=== PATIENT | male | born 1960 | race Caucasian/White ===

== ENCOUNTER 2017-07-08 15:25 | Inpatient (IN) ==
[2017-07-08] MEDS ORDERED: Vancomycin 1,000 MG in D5% in Water 250 ML IVPB SCH (22:00)
--- NOTE | 2017-07-08 22:00 | Internal Med History&Physical ---
Date of Encounter: 07/08/17 Time of Encounter: 21:58 Assessment and Plan (1) Testicular abscess Current visit: Yes Status: Acute Start the patient on vancomycin and Zosyn. Given the degree of pain, I will get testicular ultrasound ruled out tortion. Appreciate urology input. Internal Medicine - H&P: HPI Chief complaint: testicular pain History of present illness: Mr. Viera is a 57 year old male presents to an outside emergency room with the main complain of right-sided testicular swelling and pain. This started approximately 2 days ago when the patient started noticing pain redness warmth tenderness and swelling of the right testicle. Patient had subjective chills. Patient has also been complaining of burning urine and frequent urination. CT scan with outside facility showed a 3.2 cm scrotal abscess. Patient denies any trauma. Patient denies any similar problems. Patient is not sexually active. Patient denies any purulent drainage. Past Med Surg Social Fam HX - Past Surgical History Surgical History: appendectomy - Social History Smoking Status: Current every day smoker All Systems PM: A 10-system review of systems was performed and is negative for pertinent findings except as documented above in the HPI. Review of systems: 10 point review of systems is negative except for HPI - Constitutional Vitals: Temp Pulse Resp BP Pulse Ox 98.2 F 73 16 135/81 97 07/08/17 19:48 07/08/17 19:48 07/08/17 19:48 07/08/17 19:48 07/08/17 19:48 Exam: General: Patient is A&O X3 Cardiac: normal S1, S2, no additional sounds or murmurs Chest: Clear to auscultation bilaterally Abdomen: soft, nontender, non distended, normal BS. Neuro: No focal deficits Genitourinary: right testicle swollen, red, warm, tender.
[2017-07-08 22:18] LABS: Basophils % 0.3 %; Eosinophils # 0.1 K/mcL (0.0-0.6); Eosinophils % 1.4 %; Hematocrit 40.7 % (37.5-50.1); Hemoglobin 13.8 g/dL (12.9-16.9); Immature Granulocytes % 0.3 % (0-4); Immature Platelets 2.8 % (1.1-6.1); Lymphocytes # 1.7 K/mcL (0.6-4.6); Lymphocytes % 17.7 %; Mean Corpuscular HGB Conc 33.9 g/dL (31.6-35.5); Mean Corpuscular Hemoglobin 31.7 pg (28.0-33.3); Mean Corpuscular Volume 93.3 fL (83.0-100.0); Mean Platelet Volume 9.8 fL (9.4-12.4); Monocytes % 10.7 %; Neutrophils # 6.7 K/mcL (1.6-8.9); Platelet Count 210 K/mcL (140-400); Red Blood Count 4.36 M/mcL (4.19-5.50); Red Cell Distribution Width 13.8 % (11.5-14.5); Segmented Neutrophils % 69.6 %
[2017-07-08 22:29] LABS: BUN/Creatinine Ratio 8 (6-26); Blood Urea Nitrogen 9 mg/dL (8-26); Calcium 8.7 mg/dL (8.6-10.8); Carbon Dioxide 23 mEq/L (19-29); Chloride 106 mEq/L (98-109); Glucose 99 mg/dL (70-99); Magnesium 1.9 mg/dL (1.6-2.6); Osmolality,Calculated 285 (280-300); Potassium 3.8 mEq/L (3.5-4.5); Sodium 138 mEq/L (136-145); eGFR For African Americans > 60 (> 60); eGFR For Non-African Americans > 60 (> 60)
[2017-07-08] MEDS: Nicotine 21 MG PATCH.TD24 TD SCH (22:31)
[2017-07-08] MEDS: 0.9 % Sodium Chloride 1,000 ML IVC SCH (22:31)
[2017-07-08] MEDS: *HR* Morphine 2 MG/ML SYRINGE IVP PRN (22:41)
[2017-07-08 22:47] LABS: C-Reactive Protein 18 mg/L (Less than 5)
[2017-07-09] MEDS: Vancomycin 1,250 MG in D5% in Water 250 ML IVPB SCH ×2 (00:48→23:54)
[2017-07-09] MEDS: Piperacillin/Tazobactam 3.375 GM in D5% in Water 50 ML IVPB SCH ×3 (00:49→16:35)
[2017-07-09] MEDS: *HR* Heparin 5,000 UNIT/ML VIAL SQ SCH ×2 (04:56→17:15)
[2017-07-09] MEDS: *HR* Morphine 2 MG/ML SYRINGE IVP PRN ×5 (04:56→20:21)
[2017-07-09] MEDS: Famotidine 20 MG TABLET PO SCH (08:42)
[2017-07-09] MEDS: Nicotine 21 MG PATCH.TD24 TD SCH (08:43)
[2017-07-09] MEDS: 0.9 % Sodium Chloride 1,000 ML IVC SCH (13:52)
--- NOTE | 2017-07-09 17:07 | Internal Med Progress Note ---
Date of Encounter: 07/09/17 Time of Encounter: 15:10 - Assessment and plan (1) Testicular abscess Current Visit: Yes Status: Acute Assessment and plan: continue empiric IV abx pain control (Increased morphine dose and added hydrocodone PO) awaiting urology consultation (2) DVT prophylaxis Current Visit: Yes Status: Acute Assessment and plan: heparin SQ (3) Tobacco abuse Current Visit: Yes Status: Acute Assessment and plan: smoking cessation counseling provided patient not ready to quit at this time nicotine supplementation provided - Subjective Interval history: Patient seen and examined with nursing staff present at bedside. Resting in bed and states the pain is not controlled with the current pain medications and he feels no different compared to previous day. No fever or chills reported but continues to have severe testicular pain. - Constitutional Vitals: Temp Pulse Resp BP Pulse Ox 98.5 F 94 14 150/82 98 07/09/17 14:24 07/09/17 14:24 07/09/17 14:24 07/09/17 14:24 07/09/17 14:24 General appearance: Present: A&O X 3, no acute distress, answers questions appropriately - Head Head exam: Present: atraumatic, normocephalic - Eye Eye exam: Present: conjuntiva pink, sclera anicteric - Respiratory Respiratory exam: Present: CTAB. Absent: accessory muscle use, rales, rhonchi, wheezes - Cardiovascular Cardiovascular exam: Present: RRR, +S1, +S2. Absent: diastolic murmur, gallop, rubs, systolic murmur - GI/Abdominal GI/Abdominal exam: Present: normal bowel sounds, soft, no peritoneal signs. Absent: distended, tenderness - exam: Present: testicular tenderness - Extremities Exam Extremities exam: Present: warm, radial pulses palpable and symmetrical. Absent : calf tenderness, cyanotic, pedal edema - Neurological Exam Neurological exam: Present: alert, oriented X3 Internal Medicine: Result - Labs CBC & Chem 7: 07/08/17 22:10 07/08/17 22:10 Labs: Short CBC 07/08/17 Range/Units 22:10 WBC 9.6 (4.3-11.1) K/mcL Hgb 13.8 (12.9-16.9) g/dL Hct 40.7 (37.5-50.1) % Plt Count 210 (140-400) K/mcL Neutrophils # 6.7 (1.6-8.9) K/mcL BMP 07/08/17 22:10 Sodium 138 Potassium 3.8 Chloride 106 Carbon Dioxide 23 BUN 9 Creatinine 1.19 Glucose 99 Calcium 8.7 - Impressions Impressions Scrotum Ultrasound 07/09/17 00:00 IMPRESSION: 1. Unremarkable testicles without evidence of torsion. 2. 4.5 cm lobular complex fluid collection in the right lower scrotum. D/ / 07/09/2017 07:15:33 Zackary Wadsworth MD / ever Interpreting Provider: Zackary Wadsworth MD Consult Discharge Plan - Plan Referrals: Ronda Pierre, RETAIL INVENTORY CONTROL CLERK [Primary Care Provider] -
[2017-07-09] MEDS: *HR* HYDROcodone/Acet 5/325 mg TABLET PO PRN ×2 (17:15→23:54)
[2017-07-10] MEDS: 0.9 % Sodium Chloride 1,000 ML IVC SCH ×3 (01:24→11:33)
[2017-07-10] MEDS: Piperacillin/Tazobactam 3.375 GM in D5% in Water 50 ML IVPB SCH ×3 (01:25→16:45)
[2017-07-10 05:06] LABS: Basophils % 0.3 %; Eosinophils # 0.2 K/mcL (0.0-0.6); Eosinophils % 1.8 %; Hematocrit 38.5 % (37.5-50.1); Hemoglobin 12.5 g/dL (12.9-16.9); Immature Granulocytes % 0.3 % (0-4); Immature Platelets 3.1 % (1.1-6.1); Lymphocytes # 1.2 K/mcL (0.6-4.6); Lymphocytes % 13.8 %; Mean Corpuscular HGB Conc 32.5 g/dL (31.6-35.5); Mean Corpuscular Hemoglobin 31.4 pg (28.0-33.3); Mean Corpuscular Volume 96.7 fL (83.0-100.0); Mean Platelet Volume 10.2 fL (9.4-12.4); Monocytes # 0.9 K/mcL (0.0-1.3); Monocytes % 9.7 %; Neutrophils # 6.5 K/mcL (1.6-8.9); Platelet Count 188 K/mcL (140-400); Red Blood Count 3.98 M/mcL (4.19-5.50); Red Cell Distribution Width 13.8 % (11.5-14.5); Segmented Neutrophils % 74.1 %
[2017-07-10] MEDS: *HR* Heparin 5,000 UNIT/ML VIAL SQ SCH ×2 (05:16→18:17)
[2017-07-10] MEDS: *HR* HYDROcodone/Acet 5/325 mg TABLET PO PRN ×2 (05:17→09:42)
[2017-07-10 05:20] LABS: BUN/Creatinine Ratio 12 (6-26); Blood Urea Nitrogen 12 mg/dL (8-26); Calcium 8.2 mg/dL (8.6-10.8); Carbon Dioxide 25 mEq/L (19-29); Chloride 108 mEq/L (98-109); Glucose 80 mg/dL (70-99); Osmolality,Calculated 285 (280-300); Phosphorous 4.1 mg/dL (2.3-4.7); Sodium 138 mEq/L (136-145); eGFR For African Americans > 60 (> 60); eGFR For Non-African Americans > 60 (> 60)
--- NOTE | 2017-07-10 06:27 | Urology - Consult Note ---
Date of Encounter: 07/10/17 Time of Encounter: 06:25 - Assessment and Plan (1) Scrotal wall abscess Current Visit: Yes Status: Acute Assessment and plan: I reviewed the scrotal ultrasound which reveals a loculated fluid collection near the scrotal wall. Highest on my differential is a scrotal wall abscess. I do not feel it involves his testicles. There is no evidence of testicle abscess or torsion. I feel he requires an incision and drainage. We discussed performing at the bedside but he states he isn't too much discomfort. We'll proceed to the operating room today. He is stable and not septic appearing. Interestingly his white cell count is normal. Cultures will be taken to verify that it is an abscess.. Urology CN:HPI Consult date: 07/10/17 History of present illness: Patient transferred from outside hospital on Sunday for possible scrotal abscess. Urology service consulted but not contacted. Patient was seen on the urology list and evaluated this morning. Patient reports the scrotal swelling started on Sunday and has worsened. No history of abscesses or infection. No diabetes. No trouble urinating. Past Med Surg Social Fam HX - Past Surgical History Surgical History: appendectomy - Social History Smoking Status: Current every day smoker Medications and Allergies No Known Home Drugs 07/09/17 [History] 3 Allergy/AdvReac Type Severity Reaction Status Date / Time No Known Allergies Allergy Verified 07/08/17 23:11 Review of Systems - Constitutional fever(s), no chills - EENT Nose, mouth and throat: no dizziness - Cardiovascular no chest pain - Respiratory no cough - Gastrointestinal no abdominal pain - Genitourinary scrotal swelling, no change in libido - Musculoskeletal no back pain - Integumentary no erythema - Neurological no confusion - Psychiatric no anxiety - Hematologic/Lymphatic no easy bleeding - Allergic/Immunologic no throat swelling Exam Initial Vital Signs Temp Pulse Resp BP Pulse Ox 98.7 F 70 18 153/85 97 07/08/17 18:26 07/08/17 18:26 07/08/17 18:26 07/08/17 18:26 07/08/17 18:26 - General physical appearance Present: well developed, no distress, moderate pain - Eyes Present: PERRL - ENT Present: normal nares - Neck Present: no masses - Respiratory Present: normal respiratory effort - Cardiovascular Cardiovascular exam IM: RRR - Abdomen Abdomen: Present: soft - Integumentary Present: no rash, no growths - Neurologic Present: normal coordination. Absent: disoriented, confused - Additional Findings Significant scrotal wall swelling on the right inferior aspect of the scrotal wall. Consistent with a large scrotal wall abscess. Fluctuant without active drainage. Exquisitely tender. Appears separate from testicles. Urology Results - Labs 07/10/17 04:29 07/10/17 04:29 Abnormal lab results RBC 3.98 M/mcL (4.19-5.50) L 07/10/17 04:29 Hgb 12.5 g/dL (12.9-16.9) L 07/10/17 04:29 ESR 26 mm/hr (0-10) H 07/08/17 22:10 Calcium 8.2 mg/dL (8.6-10.8) L 07/10/17 04:29 C-Reactive Protein 18 mg/L (Less than 5) H 07/08/17 22:10 Diabetes panel 07/10/17 Range/Units 04:29 Sodium 138 (136-145) mEq/L Potassium 4.0 (3.5-4.5) mEq/L Chloride 108 (98-109) mEq/L Carbon Dioxide 25 (19-29) mEq/L BUN 12 (8-26) mg/dL Creatinine 0.97 (0.72-1.25) mg/dL Glucose 80 (70-99) mg/dL Calcium 8.2 L (8.6-10.8) mg/dL Calcium panel 07/10/17 Range/Units 04:29 Calcium 8.2 L (8.6-10.8) mg/dL Phosphorus 4.1 (2.3-4.7) mg/dL Pituitary panel 07/10/17 Range/Units 04:29 Sodium 138 (136-145) mEq/L Potassium 4.0 (3.5-4.5) mEq/L Chloride 108 (98-109) mEq/L Carbon Dioxide 25 (19-29) mEq/L BUN 12 (8-26) mg/dL Creatinine 0.97 (0.72-1.25) mg/dL Glucose 80 (70-99) mg/dL Calcium 8.2 L (8.6-10.8) mg/dL Adrenal panel 11/14/17 Range/Units 04:29 Sodium 138 (136-145) mEq/L Potassium 4.0 (3.5-4.5) mEq/L Chloride 108 (98-109) mEq/L Carbon Dioxide 25 (19-29) mEq/L BUN 12 (8-26) mg/dL Creatinine 0.97 (0.72-1.25) mg/dL Glucose 80 (70-99) mg/dL Calcium 8.2 L (8.6-10.8) mg/dL All other labs normal. Consult Discharge Plan - Plan Referrals: Ronda Pierre, OMAR [Primary Care Provider] -
[2017-07-10] MEDS: *HR* Morphine 2 MG/ML SYRINGE IVP PRN ×3 (07:29→15:55)
[2017-07-10] MEDS: Nicotine 21 MG PATCH.TD24 TD SCH (07:29)
[2017-07-10] MEDS: Famotidine 20 MG TABLET PO SCH (07:29)
[2017-07-10 11:21] LABS: Bilirubin,Urine Negative (Negative); Blood,Urine Negative (Negative); Clarity,Urine Clear (Clear); Color,Urine Yellow (Yellow); Glucose,Urine (UA) Normal (Normal); Ketones,Urine Negative (Negative); Leukocyte Esterase,Urine Negative (Negative); Nitrite,Urine Negative (Negative); PH,Urine 6.5 pH Units (5.0-8.0); Protein,Urine Negative (Neg-Trace); Specific Gravity,Urine 1.012 (1.010-1.025); Urobilinogen,Urine Normal (Normal)
--- NOTE | 2017-07-10 14:32 | Internal Med Progress Note ---
Date of Encounter: 07/10/17 Time of Encounter: 13:35 - Assessment and plan (1) Testicular abscess Current Visit: Yes Status: Acute Assessment and plan: continue empiric IV abx pain control urology evaluation appreciated, scheduled for I&D later today. As per urology, it appears to be a scrotal wall abscess and less likely a testicular abscess (2) DVT prophylaxis Current Visit: Yes Status: Acute Assessment and plan: heparin SQ (3) Tobacco abuse Current Visit: Yes Status: Acute Assessment and plan: smoking cessation counseling provided patient not ready to quit at this time nicotine supplementation provided - Subjective Interval history: Patient seen and examined with nursing staff present at bedside. Resting in bed and reports of pain being controlled with pain medications. Pt was evaluated by urology and will be going to OR for I&D of abscess - Constitutional Vitals: Temp Pulse Resp BP Pulse Ox 98.4 F 73 14 129/72 98 07/10/17 11:10 07/10/17 11:10 07/10/17 11:10 07/10/17 11:10 07/10/17 11:10 General appearance: Present: A&O X 3, no acute distress, answers questions appropriately - Head Head exam: Present: atraumatic, normocephalic - Eye Eye exam: Present: conjuntiva pink, sclera anicteric - Respiratory Respiratory exam: Present: CTAB. Absent: accessory muscle use, rales, rhonchi, wheezes - Cardiovascular Cardiovascular exam: Present: RRR, +S1, +S2. Absent: diastolic murmur, gallop, rubs, systolic murmur - GI/Abdominal GI/Abdominal exam: Present: normal bowel sounds, soft, no peritoneal signs. Absent: distended, tenderness - exam: Present: scrotal swelling - Extremities Exam Extremities exam: Present: warm, radial pulses palpable and symmetrical. Absent : calf tenderness, cyanotic, pedal edema - Neurological Exam Neurological exam: Present: alert, oriented X3 - Psychiatric Psychiatric exam: Present: normal affect, normal mood Internal Medicine: Result - Labs CBC & Chem 7: 07/10/17 04:29 07/10/17 04:29 Labs: Short CBC 07/10/17 Range/Units 04:29 WBC 8.7 (4.3-11.1) K/mcL Hgb 12.5 L (12.9-16.9) g/dL Hct 38.5 (37.5-50.1) % Plt Count 188 (140-400) K/mcL Neutrophils # 6.5 (1.6-8.9) K/mcL BMP 07/10/17 04:29 Sodium 138 Potassium 4.0 Chloride 108 Carbon Dioxide 25 BUN 12 Creatinine 0.97 Glucose 80 Calcium 8.2 L Urine 07/10/17 Range/Units 11:05 Urine Color Yellow (Yellow) Urine Clarity Clear (Clear) Urine pH 6.5 (5.0-8.0) pH Units Ur Specific [place] 1.012 (1.010-1.025) Urine Protein Negative (Neg-Trace) mg/dL Urine Glucose (UA) Normal (Normal) mg/dL Consult Discharge Plan - Plan Referrals: Ronda Pierre CNP [Primary Care Provider] -
--- NOTE | 2017-07-10 17:01 | Anesthesia Evaluation PreOp ---
Date of Encounter: 07/10/17 Time of Encounter: 16:59 - Past History Planned Operation: I&D scrotal abscess Cardiac History: Denies any Significant Hx Pulmonary History: Smoker AVIONICS INTEGRATION ENGINEER History: Denies Any Significant HX Other Medical History: GERD Anesthesia History: No Prior Anesthetic Complications Medications and Allergies No Known Home Drugs 07/09/17 [History] 3 Allergy/AdvReac Type Severity Reaction Status Date / Time No Known Allergies Allergy Verified 07/08/17 23:11 - Meds/Allergy Pre-op Review Medications Reviewed: Yes Allergies Reviewed: Yes Beta Blockers on Current Med List: No Anesthesia Results - Labs 07/10/17 04:29 07/10/17 04:29 Anesthesia Exam Last Vital Signs Temp 98.7 F 07/10/17 15:53 Pulse 79 07/10/17 15:53 Resp 17 07/10/17 15:53 BP 129/85 07/10/17 15:53 Pulse Ox 98 07/10/17 15:53 Weight: 79 kg NPO (# of Hours): > 8 hrs - HEENT Pupil (Motor): Pupils equal, EOMI Mallampati: II Teeth: Normal Oral Opening: Greater than 3 - AVIONICS INTEGRATION ENGINEER LOC: Oriented AVIONICS INTEGRATION ENGINEER Motor: Normal RUE, Normal LUE, Normal RLE, Normal LLE, Normal Face - Cardiac Rhythm: Regular Murmur: None - Pulmonary Breath Sounds: bilateral Clear Respiratory Effort: Symmetrical Anesthesia Assess/Plan ASA Score: 2 Modified [place] Scale for Level of Consciousness: Cooperative, oriented, and tranquil Anesthetic Plan: General Monitoring Plan: Standard Monitors Recovery Plan: PACU
[2017-07-10] MEDS ORDERED: Lidocaine 1% 20 ML MDV ONE (17:02)
[2017-07-10] MEDS ORDERED: Ondansetron 4 MG/2 ML VIAL ONE (17:21)
[2017-07-10] MEDS ORDERED: *HR* Succinylcholine 200 MG/10 ML VIAL IVP ONE (17:21)
[2017-07-10] MEDS ORDERED: Dexamethasone 4 MG/ML VIAL ONE (17:21)
[2017-07-10] MEDS ORDERED: Lidocaine -MPF 2% 2 ML VIAL ONE (17:21)
[2017-07-10] MEDS ORDERED: *HR* Propofol 200 MG/20 ML VIAL IVP ONE (17:21)
[2017-07-10] MEDS ORDERED: *HR* FentaNYL (PF) 100 MCG/2 ML VIAL ONE (17:21)
[2017-07-10] MEDS ORDERED: *HR* HYDROmorphone (PF) 1 MG/ML SYRINGE IVP PRN ×2 (17:31→18:37)
[2017-07-10] MEDS ORDERED: *HR* Promethazine 25 MG/ML VIAL IVP PRN ×2 (17:31→18:37)
[2017-07-10] MEDS ORDERED: Acetaminophen IV 1,000 MG/100 ML INFUS..BTL IVPB ONE (18:18)
--- NOTE | 2017-07-10 18:55 | Anesthesia Evaluation Post Op ---
Date of Encounter: 07/10/17 Time of Encounter: 18:30 - Vital Signs Vital Signs: Selected Entries 07/10/17 18:30 Temperature 100.4 F H Pulse Rate 76 Respiratory Rate 14 Blood Pressure 143/83 O2 Sat by Pulse Oximetry 95 - Lungs Lungs: Clear Ascult./Percussion - Airway Airway: Non-obstructed - Cardiovascular Regular Rate - Mental Status Mental Status: Alert & Oriented, Answers Appropriately - Pain Pain Scale: 3 Pain Scale used: Numeric (1 - 10) - Nausea Vomiting Nausea Vomiting: Not Present - Hydration Hydration: Tolerates oral liquids, Has not voided - Discharge PostOp Status: Transfer Patient to floor
--- NOTE | 2017-07-10 19:39 | Operative Note ---
Date of procedure: 07/10/17 Pre-op diagnosis: Scrotal wall abscess Post-op diagnosis: same Procedure: Incision and drainage of scrotal wall abscess Resection of necrotic scrotal wall skin Anesthesia: RAMOSA Surgeon: Emmanuel Kim Estimated blood loss (cc): 10 Specimen: Aerobic and anaerobic cultures. Scrotal skin Condition: stable Disposition: PACU Procedure in Detail: Patient was taken back to the operating room positioned supine on the operative table. Anesthesia was applied without complication. Timeout was performed confirming the proper patient and procedure. 3 x 2 cm fluctuant abscess on the right lateral hemiscrotum. Testicle was palpably separate from this infection. 15 blade scalpel used to make an incision through the central portion of the abscess. Moderate amount of purulent material returned. This was cultured. I then resected a majority of the skin overlying the abscess as it was thin and involved by the infection. All remaining tissue appeared viable and bleeding. Irrigated with Betadine. Packed with iodoform.
[2017-07-10] MEDS ORDERED: Vancomycin 1,250 MG in D5% in Water 250 ML IVPB SCH (23:45)
[2017-07-11] MEDS: Piperacillin/Tazobactam 3.375 GM in D5% in Water 50 ML IVPB SCH ×5 (00:44→23:31)
[2017-07-11] MEDS: *HR* Morphine 2 MG/ML SYRINGE IVP PRN ×4 (00:45→23:29)
[2017-07-11] MEDS: 0.9 % Sodium Chloride 1,000 ML IVC SCH ×3 (04:20→20:29)
[2017-07-11 06:23] LABS: Basophils % 0.2 %; Eosinophils % 0.2 %; Hemoglobin 12.6 g/dL (12.9-16.9); Immature Granulocytes % 0.4 % (0-4); Lymphocytes # 0.7 K/mcL (0.6-4.6); Lymphocytes % 7.7 %; Mean Corpuscular HGB Conc 33.2 g/dL (31.6-35.5); Mean Corpuscular Hemoglobin 31.8 pg (28.0-33.3); Mean Platelet Volume 10.2 fL (9.4-12.4); Monocytes # 0.6 K/mcL (0.0-1.3); Monocytes % 6.3 %; Neutrophils # 7.8 K/mcL (1.6-8.9); Platelet Count 182 K/mcL (140-400); Red Blood Count 3.96 M/mcL (4.19-5.50); Red Cell Distribution Width 13.5 % (11.5-14.5); Segmented Neutrophils % 85.2 %
[2017-07-11 06:32] LABS: BUN/Creatinine Ratio 8 (6-26); Blood Urea Nitrogen 9 mg/dL (8-26); Calcium 8.6 mg/dL (8.6-10.8); Carbon Dioxide 24 mEq/L (19-29); Chloride 108 mEq/L (98-109); Glucose 218 mg/dL (70-99); Magnesium 1.9 mg/dL (1.6-2.6); Osmolality,Calculated 291 (280-300); Potassium 4.1 mEq/L (3.5-4.5); Sodium 138 mEq/L (136-145); eGFR For African Americans > 60 (> 60); eGFR For Non-African Americans > 60 (> 60)
--- NOTE | 2017-07-11 06:32 | Urology Progress Note ---
Date of Encounter: 07/11/17 Time of Encounter: 06:31 - Assessment and Plan (1) Scrotal wall abscess Current Visit: Yes Status: Acute Assessment and plan: Status post incision, drainage and debridement. Continue wound care. Cultures pending. Potential discharge tomorrow. Continue IV antibiotics for now Progress Note Subjective: feels better, still having pain Objective Initial Vital Signs Temp Pulse Resp BP Pulse Ox 98.7 F 70 18 153/85 97 07/08/17 18:26 07/08/17 18:26 07/08/17 18:26 07/08/17 18:26 07/08/17 18:26 - General physical appearance Present: no distress - Additional Exam decreased erythema. no new purulence. dressings changed. - Labs 07/11/17 05:38 07/10/17 04:29 - VTE Documentation of Mechanical Device: Intermittent pneumatic compression device Consult Discharge Plan - Plan Referrals: Ronda Pierre, PILATES INSTRUCTOR [Primary Care Provider] -
[2017-07-11] MEDS: *HR* Heparin 5,000 UNIT/ML VIAL SQ SCH ×2 (06:45→18:11)
--- NOTE | 2017-07-11 10:12 | Internal Med Progress Note ---
Date of Encounter: 07/11/17 Time of Encounter: 09:55 - Assessment and plan (1) Scrotal wall abscess Current Visit: Yes Status: Acute Assessment and plan: continue empiric IV abx pain control urology evaluation appreciated s/p I&D-POD #1 f/u culture reports (2) DVT prophylaxis Current Visit: Yes Status: Acute Assessment and plan: heparin SQ (3) Tobacco abuse Current Visit: Yes Status: Acute Assessment and plan: smoking cessation counseling provided patient not ready to quit at this time nicotine supplementation provided - Subjective Interval history: Patient seen and examined with nursing staff present at bedside. Resting in bed and reports of pain being controlled with pain medications. s/p I&D of scrotal wall abscess. urology on board. - Constitutional Vitals: Temp Pulse Resp BP Pulse Ox 97.8 F 67 16 134/81 97 07/11/17 06:49 07/11/17 06:49 07/11/17 06:49 07/11/17 06:49 07/11/17 06:49 General appearance: Present: A&O X 3, no acute distress, answers questions appropriately - Head Head exam: Present: atraumatic, normocephalic - Eye Eye exam: Present: conjuntiva pink, sclera anicteric - Respiratory Respiratory exam: Present: CTAB. Absent: accessory muscle use, rales, rhonchi, wheezes - Cardiovascular Cardiovascular exam: Present: RRR, +S1, +S2. Absent: diastolic murmur, gallop, rubs, systolic murmur - GI/Abdominal GI/Abdominal exam: Present: normal bowel sounds, soft, no peritoneal signs. Absent: distended, tenderness - Neurological Exam Neurological exam: Present: alert, oriented X3 - Psychiatric Psychiatric exam: Present: normal affect, normal mood Internal Medicine: Result - Labs CBC & Chem 7: 07/11/17 05:38 07/11/17 05:38 Labs: Short CBC 07/11/17 Range/Units 05:38 WBC 9.2 (4.3-11.1) K/mcL Hgb 12.6 L (12.9-16.9) g/dL Hct 38.0 (37.5-50.1) % Plt Count 182 (140-400) K/mcL Neutrophils # 7.8 (1.6-8.9) K/mcL BMP 07/11/17 05:38 Sodium 138 Potassium 4.1 Chloride 108 Carbon Dioxide 24 BUN 9 Creatinine 1.13 Glucose 218 H Calcium 8.6 Urine 07/10/17 Range/Units 11:05 Urine Color Yellow (Yellow) Urine Clarity Clear (Clear) Urine pH 6.5 (5.0-8.0) pH Units Ur Specific [place] 1.012 (1.010-1.025) Urine Protein Negative (Neg-Trace) mg/dL Urine Glucose (UA) Normal (Normal) mg/dL - VTE Documentation of Mechanical Device: Intermittent pneumatic compression device Consult Discharge Plan - Plan Referrals: Ronda Pierre, AUTOMOTIVE SERVICE PROFESSIONAL [Primary Care Provider] -
[2017-07-11] MEDS: Famotidine 20 MG TABLET PO SCH (10:16)
[2017-07-11] MEDS: Nicotine 21 MG PATCH.TD24 TD SCH (10:17)
[2017-07-11] MEDS: Vancomycin 1,250 MG in D5% in Water 250 ML IVPB SCH ×2 (11:45→23:29)
[2017-07-11] MEDS ORDERED: Aminoglycoside Consult 1 EACH MC ONE (13:35)
[2017-07-11] MEDS: *HR* HYDROcodone/Acet 5/325 mg TABLET PO PRN (20:42)
[2017-07-12] MEDS: *HR* HYDROcodone/Acet 5/325 mg TABLET PO PRN (04:00)
[2017-07-12 05:02] LABS: Basophils % 0.6 %; Eosinophils # 0.2 K/mcL (0.0-0.6); Eosinophils % 3.2 %; Hematocrit 37.4 % (37.5-50.1); Hemoglobin 12.1 g/dL (12.9-16.9); Immature Granulocytes % 0.6 % (0-4); Lymphocytes # 1.7 K/mcL (0.6-4.6); Lymphocytes % 24.7 %; Mean Corpuscular HGB Conc 32.4 g/dL (31.6-35.5); Mean Corpuscular Hemoglobin 31.5 pg (28.0-33.3); Mean Corpuscular Volume 97.4 fL (83.0-100.0); Mean Platelet Volume 10.2 fL (9.4-12.4); Monocytes # 0.8 K/mcL (0.0-1.3); Monocytes % 11.3 %; Neutrophils # 4.1 K/mcL (1.6-8.9); Platelet Count 173 K/mcL (140-400); Red Blood Count 3.84 M/mcL (4.19-5.50); Red Cell Distribution Width 13.6 % (11.5-14.5); Segmented Neutrophils % 59.6 %
[2017-07-12 05:19] LABS: BUN/Creatinine Ratio 9 (6-26); Blood Urea Nitrogen 10 mg/dL (8-26); Calcium 8.2 mg/dL (8.6-10.8); Carbon Dioxide 26 mEq/L (19-29); Chloride 111 mEq/L (98-109); Glucose 113 mg/dL (70-99); Magnesium 1.9 mg/dL (1.6-2.6); Osmolality,Calculated 294 (280-300); Phosphorous 3.5 mg/dL (2.3-4.7); Potassium 4.1 mEq/L (3.5-4.5); Sodium 142 mEq/L (136-145); eGFR For African Americans > 60 (> 60); eGFR For Non-African Americans > 60 (> 60)
[2017-07-12] MEDS: *HR* Morphine 2 MG/ML SYRINGE IVP PRN (06:16)
[2017-07-12] MEDS: *HR* Heparin 5,000 UNIT/ML VIAL SQ SCH (06:16)
--- NOTE | 2017-07-12 06:58 | Urology Progress Note ---
Date of Encounter: 07/12/17 Time of Encounter: 06:57 - Assessment and Plan (1) Scrotal wall abscess Current Visit: Yes Status: Resolved Assessment and plan: Resolving abscess. No need to further pack. Keep clean dressings over the incision. Okay with discharge per urology standpoint. Recommend Bactrim or Keflex at discharge. No follow-up necessary unless the incision is not healing appropriately Progress Note Subjective: still having pain Objective Initial Vital Signs Temp Pulse Resp BP Pulse Ox 98.7 F 70 18 153/85 97 07/08/17 18:26 07/08/17 18:26 07/08/17 18:26 07/08/17 18:26 07/08/17 18:26 - General physical appearance Present: no distress - Additional Exam Decreased erythema. No purulence. Less drainage. Dressings changed - Labs 07/12/17 04:25 07/12/17 04:25 Diabetes panel 07/12/17 Range/Units 04:25 Sodium 142 (136-145) mEq/L Potassium 4.1 (3.5-4.5) mEq/L Chloride 111 H (98-109) mEq/L Carbon Dioxide 26 (19-29) mEq/L BUN 10 (8-26) mg/dL Creatinine 1.12 (0.72-1.25) mg/dL Glucose 113 H (70-99) mg/dL Calcium 8.2 L (8.6-10.8) mg/dL Calcium panel 07/12/17 Range/Units 04:25 Calcium 8.2 L (8.6-10.8) mg/dL Phosphorus 3.5 (2.3-4.7) mg/dL Pituitary panel 07/12/17 Range/Units 04:25 Sodium 142 (136-145) mEq/L Potassium 4.1 (3.5-4.5) mEq/L Chloride 111 H (98-109) mEq/L Carbon Dioxide 26 (19-29) mEq/L BUN 10 (8-26) mg/dL Creatinine 1.12 (0.72-1.25) mg/dL Glucose 113 H (70-99) mg/dL Calcium 8.2 L (8.6-10.8) mg/dL Adrenal panel 07/12/17 Range/Units 04:25 Sodium 142 (136-145) mEq/L Potassium 4.1 (3.5-4.5) mEq/L Chloride 111 H (98-109) mEq/L Carbon Dioxide 26 (19-29) mEq/L BUN 10 (8-26) mg/dL Creatinine 1.12 (0.72-1.25) mg/dL Glucose 113 H (70-99) mg/dL Calcium 8.2 L (8.6-10.8) mg/dL - VTE Documentation of Mechanical Device: Intermittent pneumatic compression device Consult Discharge Plan - Plan Referrals: Ronda Pierre CNP [Primary Care Provider] -
[2017-07-12] MEDS: Nicotine 21 MG PATCH.TD24 TD SCH (08:02)
[2017-07-12] MEDS: Piperacillin/Tazobactam 3.375 GM in D5% in Water 50 ML IVPB SCH (08:02)
[2017-07-12] MEDS: Famotidine 20 MG TABLET PO SCH (08:02)
[2017-07-12 10:33] VITALS: BP 149/88
--- NOTE | 2017-07-12 11:50 | Discharge Summary ---
Date of Encounter: 07/12/17 Time of Encounter: 11:47 - Discharge Diagnosis (1) Scrotal wall abscess Priority: Primary Status: Resolved (2) DVT prophylaxis Priority: Secondary Status: Acute (3) Tobacco abuse Priority: Secondary Status: Acute - Discharge Medications Prescriptions: HYDROcodone/Acet 5/325 mg [[place] 5-325 mg] 1 tab PO Q6H PRN #20 tablet PRN Reason: moderate to severe pain Sulfamethoxazole/Trimeth DS [Bactrim DS] 1 each PO BID #15 tablet Home Medications: HYDROcodone/Acet 5/325 mg [[place] 5-325 mg] 1 tab PO Q6H PRN #20 tablet 07/12/17 [Rx] Sulfamethoxazole/Trimeth DS [Bactrim DS] 1 each PO BID #15 tablet 07/12/17 [Rx] Allergies/Adverse Reactions: 3 Allergy/AdvReac Type Severity Reaction Status Date / Time No Known Allergies Allergy Verified 07/08/17 23:11 Date of admission: 07/08/17 21:37 Primary care physician: Ronda Pierre CNP Consults: urology: Dr. Kim Discharging clinician: Yumiko Merrill Anticipated date of discharge: 07/12/17 - Patient Status Disposition: Home, Self-Care Condition: Good Functional capacity at discharge: independent ambulation Overall status at discharge: patient is back to baseline - Discharge Instructions Follow Up With: Ronda Pierre CNP [Primary Care Provider] - Additional Instructions: Please follow up with your primary care physician within five days after your discharge from the hospital. Please continue to take oral antiobiotics as prescribed Please follow up urology if the incision site is not healing appropriately - Diet and Activity Activity: resume usual activities as tolerated Diet: advance to your usual diet Hospital course: Mr. Viera is a 57 year old male with no noted PMH admitted for scrotal wall abscess. He was seen by urology and underwent I&D of the abscess. He was continued on IV abx. He responded well to therapy. He will be discharged to home with oral antibiotics. He is hemodynamically stable and will be discharged to home today. Pt demonstrates understanding of his diagnosis and agree with the discharge care and plan - Time Spent with Patient Total time spent providing and/or coordinating discharge services: Less than 30 minutes - Constitutional Vitals: Temp Pulse Resp BP Pulse Ox 98.7 F 62 14 149/88 98 11/16/17 10:32 07/12/17 10:32 07/12/17 10:32 07/12/17 10:32 07/12/17 10:32 General appearance: Present: A&O X 3, no acute distress, answers questions appropriately - Head Head exam: Present: atraumatic, normocephalic - Eye Eye exam: Present: conjuntiva pink, sclera anicteric - Respiratory Respiratory exam: Present: CTAB. Absent: accessory muscle use, rales, rhonchi, wheezes - Cardiovascular Cardiovascular exam: Present: RRR, +S1, +S2. Absent: diastolic murmur, gallop, rubs, systolic murmur - GI/Abdominal GI/Abdominal exam: Present: normal bowel sounds, soft, no peritoneal signs. Absent: distended, tenderness - Extremities Exam Extremities exam: Present: warm, radial pulses palpable and symmetrical. Absent : calf tenderness, cyanotic, pedal edema - Neurological Exam Neurological exam: Present: alert, oriented X3 - Psychiatric Psychiatric exam: Present: normal affect, normal mood - VTE Documentation of Mechanical Device: Intermittent pneumatic compression device
== END 2017-07-12 13:36 | disposition home or self-care (01) | DRG 501 ==
LOC: 3ANU → SUATTDRO 21:37
PROVIDERS: ADMIT Hospitalist; ATTEND Internal Medicine